=== PATIENT | female | born 1995 | race Caucasian/White ===

== ENCOUNTER 2019-04-04 16:17 | Emergency (ER) | payer BC ==
[~2019-04-04] VITALS: Ht 167.6 cm; Wt 99.8 kg
[2019-04-04] MEDS ORDERED: NEURONTIN300 MG PO (16:37)
[2019-04-04] MEDS ORDERED: SERTRALINE HCL50 MG PO (16:37)
[2019-04-04] MEDS ORDERED: LAMICTAL100 MG PO (16:37)
[2019-04-04] MEDS ORDERED: REVIA 50 MG TAB50 M1 (16:38)
[2019-04-04 17:07] LABS: AMP/METHAMP Negative (Negative); BARBITURATES Negative (Negative); BENZODIAZEPINES Negative (Negative); COCAINE Negative (Negative); METHADONE Negative (Negative); OPIATES Negative (Negative); PCP Negative (Negative); THC Negative (Negative)
[2019-04-04 17:39] LABS: URINE BILIRUBIN NEGATIVE (Negative); URINE BLOOD NEGATIVE (Negative); URINE CLARITY CLEAR; URINE COLOR YELLOW; URINE GLUCOSE-RANDOM NEGATIVE (Negative); URINE KETONES NEGATIVE (Negative); URINE LEUKOCYTES-REFLEX NEGATIVE (Negative); URINE NITRITE-REFLEX NEGATIVE (Negative); URINE PROTEIN NEGATIVE (Negative); URINE UROBILINOGEN 0.2 E.U./dl (0.2-1.0)
[2019-04-04 18:15] LABS: CALCIUM 9.5 mg/dL (8.5-10.1); CREATININE 0.7 mg/dL (0.6-1.3); POTASSIUM 4.1 mmol/L (3.5-5.1)
[2019-04-04 20:08] VITALS: BP 102/78
== END 2019-04-04 20:09 | disposition home or self-care (01) ==
LOC: M.ERS 16:17
PROVIDERS: Nurse Practitioner Family
DX: S16.1XXA Strain of muscle, fascia and tendon at neck level, initial encounter (principal); M54.5 Low back pain; F31.9 Bipolar disorder, unspecified; F41.9 Anxiety disorder, unspecified; Z79.899 Other long term (current) drug therapy; V89.2XXA Person injured in unspecified motor-vehicle accident, traffic, initial encounter; Y93.89 Activity, other specified; Y92.89 Other specified places as the place of occurrence of the external cause; Y99.8 Other external cause status

== ENCOUNTER 2020-01-01 14:38 | Emergency (ER) | payer OTHER ==
[~2020-01-01] VITALS: Ht 172.7 cm; Wt 81.7 kg
[~2020-01-01 14:38] MED LIST: LAMICTAL100 MG PO; NEURONTIN300 MG PO; REVIA 50 MG TAB50 M1; SERTRALINE HCL50 MG PO
[2020-01-01] MEDS ORDERED: DROSPIRENONE-E1 EACH PO (15:05)
[2020-01-01 16:18] VITALS: BP 139/81
== END 2020-01-01 16:19 | disposition home or self-care (01) ==
LOC: M.ERS 14:38
DX: S93.691A Other sprain of right foot, initial encounter (principal); F17.210 Nicotine dependence, cigarettes, uncomplicated; W22.8XXA Striking against or struck by other objects, initial encounter; Y93.89 Activity, other specified; Y92.89 Other specified places as the place of occurrence of the external cause; Y99.8 Other external cause status